=== PATIENT | female | born 1945 | race African-American/Black ===

== ENCOUNTER 2017-07-09 11:06 | Emergency (ER) | payer MEDICARE, BC ==
[~2017-07-09] VITALS: Ht 162.6 cm; Wt 80.0 kg
[~2017-07-09 11:06] MED LIST: ATEN-175; FURO-152
[2017-07-09] MEDS ORDERED: ACETAMINOPHEN 325MG TABLET PO ONE (11:30)
[2017-07-09] MEDS ORDERED: IBUPROFEN 600MG TABLET PO ONE (13:00)
[2017-07-09 13:23] VITALS: BP 165/73
== END 2017-07-09 13:30 | disposition home or self-care (01) ==
LOC: ER 11:33
DX: S09.8XXA Other specified injuries of head, initial encounter (principal); W18.09XA Striking against other object with subsequent fall, initial encounter; I10 Essential (primary) hypertension; Y93.H2 Activity, gardening and landscaping; Y92.017 Garden or yard in single-family (private) house as the place of occurrence of the external cause; Z88.5 Allergy status to narcotic agent
CPT/HCPCS: 70450; 99284